=== PATIENT | male | born 1975 | race Caucasian/White ===

== ENCOUNTER 2020-10-20 14:16 | Emergency (ER) | payer BC ==
[2020-10-20] MEDS ORDERED: Sodium Chloride 0.9% 10 ML Syringe FLUSH PRN (14:54)
[2020-10-20] MEDS ORDERED: Ondansetron 4 MG/2 ML SDV IVPUSH ONE (14:54)
--- NOTE | 2020-10-20 14:57 | EDM.PDOC ---
ED HPI GENERAL MEDICAL PROBLEM - General Chief Complaint: Respiratory Problem Stated Complaint: WEAK/TIRED/CONFUSION Time Seen by Provider: 10/20/20 14:26 Source of Information: Reports: Patient History Limitations: Reports: No Limitations - History of Present Illness INITIAL COMMENTS - FREE TEXT/NARRATIVE: The patient presents with a few complaints. He has generalized weakness, nausea, vomiting, cough, congestion, and diarrhea. He also is fatigued and has a headache. He said he was tested about 1 month ago for COVID 19 and he was negative. He has no fever, numbness, abdominal pain. He has a history of anxiety and hypertension. He said this has been going on for a few days. He was confused to the time when he cam in but he knew who he was and where he was. Onset: Gradual Duration: Day(s): Severity: Moderate Improves with: Reports: None Worsens with: Reports: None Associated Symptoms: Reports: Confusion, Cough, Headaches, Nausea/Vomiting. Denies: Chest Pain, Fever/Chills, Shortness of Breath Headache Pain Score (Numeric/FACES): 5 - Related Data Allergies Allergy/AdvReac Type Severity Reaction Status Date / Time No Known Allergies Allergy Verified 10/20/20 14:37 Home Meds: Home Meds Hydrocodone/Acetaminophen [Hydrocodone-Acetamin 5-325 mg] 1 tab PO Q6H PRN 10/20/20 [History] LORazepam [Ativan] 0.5 mg PO DAILY 10/20/20 [History] Varenicline Tartrate [Chantix] 1 mg PO DAILY 10/20/20 [History] hydrOXYzine HCL [Hydroxyzine HCl] 25 mg PO Q6H PRN 10/20/20 [History] lisinopriL [Lisinopril] 40 mg PO DAILY 10/20/20 [History] Past Medical History Cardiovascular History: Reports: Hypertension Psychiatric History: Reports: Anxiety Social & Family History - Tobacco Use Tobacco Use Status *Q: Current Every Day Tobacco User Years of Tobacco use: 20 Packs/Tins Daily: 0.7 - Caffeine Use Caffeine Use: Reports: Coffee - Recreational Drug Use Recreational Drug Use: No ED ROS GENERAL - Review of Systems Review Of Systems: See Below Constitutional: Reports: Malaise, Weakness, Fatigue. Denies: Fever, Chills HEENT: Reports: No Symptoms Respiratory: Reports: Cough. Denies: Shortness of Breath Cardiovascular: Reports: No Symptoms Endocrine: Reports: Fatigue GI/Abdominal: Reports: Diarrhea, Nausea, Vomiting. Denies: Abdominal Pain : Reports: No Symptoms Musculoskeletal: Reports: No Symptoms ED EXAM, GENERAL - Physical Exam Exam: See Below Exam Limited By: No Limitations General Appearance: Alert, No Apparent Distress Ears: Normal External Exam Nose: Normal Inspection Head: Atraumatic, Normocephalic Neck: Normal Inspection Respiratory/Chest: No Respiratory Distress, Lungs Clear, Normal Breath Sounds Cardiovascular: Regular Rate, Rhythm, No Edema, No Murmur GI/Abdominal: Soft, Non-Tender, No Organomegaly, No Mass Back Exam: Normal Inspection Extremities: Normal Inspection Neurological: Alert, No Motor/Sensory Deficits, Confused (Does not know the time of day) #1 Interpretation EKG Date: 10/20/20 Time: 14:41 Rhythm: NSR Rate (Beats/Min): 79 Ovalo: Normal P-Wave: Present QRS: Normal ST-T: Normal QT: Prolonged Course - Vital Signs Last Recorded V/S: Last Vital Signs Temp 96.8 F L 10/20/20 14:31 Pulse 83 10/20/20 14:31 Resp 20 10/20/20 14:31 BP 162/112 H 10/20/20 14:31 Pulse Ox 98 10/20/20 14:31 - Orders/Labs/Meds Orders: Active Orders 24 hr Category Date Time Status EKG Documentation Completion [RC] ASDIRECTED Care 10/20/20 14:56 Active Peripheral IV Care [RC] . DIRECTED Care 10/20/20 14:55 Active Head wo Cont [CT] Stat Exams 10/20/20 16:09 Taken Potassium Chloride [KCl 10 MEQ in Water 100 ML] 10 meq Med 10/20/20 17:45 Active Premix Bag 1 bag IV Q1H Sodium Chloride 0.9% [Saline Flush] Med 10/20/20 14:54 Active 10 ml FLUSH ASDIRECTED PRN Sodium Chloride 3% 100 ml Med 10/20/20 18:00 Active IV ASDIRECTED ED Antiemetic Medication Reflex [OM.PC] Stat Oth 10/20/20 14:55 Ordered Peripheral IV Insertion Adult [OM.PC] Stat Oth 10/20/20 14:54 Ordered EKG 12 Lead [EK] Stat Ther 10/20/20 14:56 Ordered Medication Orders Potassium Chloride 10 meq/ (Premix) 100 mls @ 100 mls/hr IV Q1H MICH Stop: 10/20/20 21:44 Last Admin: 10/20/20 18:20 Dose: 100 mls/hr Documented by: PEYTON Sodium Chloride (Sodium Chloride 3%) 100 mls @ 100 mls/hr IV ASDIRECTED MICH Last Admin: 10/20/20 18:15 Dose: 100 mls/hr Documented by: PEYTON Sodium Chloride (Saline Flush) 10 ml FLUSH ASDIRECTED PRN PRN Reason: Keep Vein Open Last Admin: 10/20/20 15:42 Dose: 10 ml Documented by: PEYTON Labs: Laboratory Tests 10/20/20 10/20/20 10/20/20 Range/Units 14:32 15:42 15:48 WBC (4.23-9.07) K/mm3 RBC (4.63-6.08) M/mm3 Hgb (13.7-17.5) gm/dl Hct (40.1-51.0) % MCV (79.0-92.2) fl MCH (25.7-32.2) pg MCHC (32.2-35.5) g/dl RDW Std Deviation (35.1-43.9) fL Plt Count (163-337) K/mm3 MPV (9.4-12.3) fl Neut % (Auto) (34.0-67.9) % Lymph % (Auto) (21.8-53.1) % [place] % (Auto) (5.3-12.2) % Eos % (Auto) (0.8-7.0) Baso % (Auto) (0.1-1.2) % Neut # (Auto) (1.78-5.38) K/mm3 Lymph # (Auto) (1.32-3.57) K/mm3 [place] # (Auto) (0.30-0.82) K/mm3 Eos # (Auto) (0.04-0.54) K/mm3 Baso # (Auto) (0.01-0.08) K/mm3 Manual Slide Review Sodium (136-145) mEq/L Potassium (3.5-5.1) mEq/L Chloride (98-107) mEq/L Carbon Dioxide (21-32) mEq/L Anion Gap (5-15) BUN (7-18) mg/dL Creatinine (0.7-1.3) mg/dL Est Cr Clr Drug Dosing mL/min Estimated GFR (MDRD) (>60) mL/min BUN/Creatinine Ratio (14-18) Glucose (74-106) mg/dL Serum Osmolality (280-300) mosm/kg Calcium (8.5-10.1) mg/dL Magnesium (1.8-2.4) mg/dl Total Bilirubin (0.2-1.0) mg/dL AST (15-37) U/L ALT (16-63) U/L Alkaline Phosphatase (46-116) U/L Troponin I (0.00-0.056) ng/mL Total Protein (6.4-8.2) g/dl Albumin (3.4-5.0) g/dl Globulin gm/dL Albumin/Globulin Ratio (1-2) Lipase (73-393) U/L Urine Color Yellow (Yellow) Urine Appearance Clear (Clear) Urine pH 8.0 (5.0-8.0) Ur Specific [place] 1.020 (1.005-1.030) Urine Protein Negative (Negative) Urine Glucose (UA) 2+ H (Negative) Urine Ketones Trace H (Negative) Urine Occult Blood Negative (Negative) Urine Nitrite Negative (Negative) Urine Bilirubin Negative (Negative) Urine Urobilinogen 1.0 (0.2-1.0) Ur Leukocyte Esterase Negative (Negative) Urine RBC 0-5 (0-5) /hpf Urine WBC 0-5 (0-5) /hpf Ur Squamous Epith Cells 0-5 (0-5) /hpf Urine Bacteria Moderate H (FEW) /hpf Urine Mucus Not seen (FEW) /hpf Ur Random Sodium (40-220) mEq/L Ethyl Alcohol 0.00 (0.00) gm% Influenza Type A RNA Negative (NEGATIVE) Influenza Type B RNA Negative (NEGATIVE) SARS-CoV-2 RNA (NOAM) Negative (NEGATIVE) 10/20/20 10/20/20 10/20/20 Range/Units 16:00 16:00 16:00 WBC 8.30 (4.23-9.07) K/mm3 RBC 4.85 (4.63-6.08) M/mm3 Hgb 14.5 (13.7-17.5) gm/dl Hct 38.9 L (40.1-51.0) % MCV 80.2 (79.0-92.2) fl MCH 29.9 (25.7-32.2) pg MCHC 37.3 H (32.2-35.5) g/dl RDW Std Deviation 33.5 L (35.1-43.9) fL Plt Count 244 (163-337) K/mm3 MPV 8.5 L (9.4-12.3) fl Neut % (Auto) 83.8 H (34.0-67.9) % Lymph % (Auto) 7.5 L (21.8-53.1) % [place] % (Auto) 8.2 (5.3-12.2) % Eos % (Auto) 0.2 L (0.8-7.0) Baso % (Auto) 0.1 (0.1-1.2) % Neut # (Auto) 6.95 H (1.78-5.38) K/mm3 Lymph # (Auto) 0.62 L (1.32-3.57) K/mm3 [place] # (Auto) 0.68 (0.30-0.82) K/mm3 Eos # (Auto) 0.02 L (0.04-0.54) K/mm3 Baso # (Auto) 0.01 (0.01-0.08) K/mm3 Manual Slide Review Abnormal smear Sodium 97 L* (136-145) mEq/L Potassium 2.0 L* (3.5-5.1) mEq/L Chloride 60 L (98-107) mEq/L Carbon Dioxide 35 H (21-32) mEq/L Anion Gap 4.0 L (5-15) BUN 2 L (7-18) mg/dL Creatinine 0.6 L (0.7-1.3) mg/dL Est Cr Clr Drug Dosing 144.64 mL/min Estimated GFR (MDRD) > 60 (>60) mL/min BUN/Creatinine Ratio 3.3 L (14-18) Glucose 146 H (74-106) mg/dL Serum Osmolality 204 L (280-300) mosm/kg Calcium 8.3 L (8.5-10.1) mg/dL Magnesium (1.8-2.4) mg/dl Total Bilirubin 1.1 H (0.2-1.0) mg/dL AST 28 (15-37) U/L ALT 48 (16-63) U/L Alkaline Phosphatase 110 (46-116) U/L Troponin I < 0.017 (0.00-0.056) ng/mL Total Protein 6.5 (6.4-8.2) g/dl Albumin 3.0 L (3.4-5.0) g/dl Globulin 3.5 gm/dL Albumin/Globulin Ratio 0.9 L (1-2) Lipase 214 (73-393) U/L Urine Color (Yellow) Urine Appearance (Clear) Urine pH (5.0-8.0) Ur Specific [place] (1.005-1.030) Urine Protein (Negative) Urine Glucose (UA) (Negative) Urine Ketones (Negative) Urine Occult Blood (Negative) Urine Nitrite (Negative) Urine Bilirubin (Negative) Urine Urobilinogen (0.2-1.0) Ur Leukocyte Esterase (Negative) Urine RBC (0-5) /hpf Urine WBC (0-5) /hpf Ur Squamous Epith Cells (0-5) /hpf Urine Bacteria (FEW) /hpf Urine Mucus (FEW) /hpf Ur Random Sodium (40-220) mEq/L Ethyl Alcohol (0.00) gm% Influenza Type A RNA (NEGATIVE) Influenza Type B RNA (NEGATIVE) SARS-CoV-2 RNA (NOAM) (NEGATIVE) 10/20/20 10/20/20 Range/Units 16:00 16:04 WBC (4.23-9.07) K/mm3 RBC (4.63-6.08) M/mm3 Hgb (13.7-17.5) gm/dl Hct (40.1-51.0) % MCV (79.0-92.2) fl MCH (25.7-32.2) pg MCHC (32.2-35.5) g/dl RDW Std Deviation (35.1-43.9) fL Plt Count (163-337) K/mm3 MPV (9.4-12.3) fl Neut % (Auto) (34.0-67.9) % Lymph % (Auto) (21.8-53.1) % [place] % (Auto) (5.3-12.2) % Eos % (Auto) (0.8-7.0) Baso % (Auto) (0.1-1.2) % Neut # (Auto) (1.78-5.38) K/mm3 Lymph # (Auto) (1.32-3.57) K/mm3 [place] # (Auto) (0.30-0.82) K/mm3 Eos # (Auto) (0.04-0.54) K/mm3 Baso # (Auto) (0.01-0.08) K/mm3 Manual Slide Review Sodium (136-145) mEq/L Potassium (3.5-5.1) mEq/L Chloride (98-107) mEq/L Carbon Dioxide (21-32) mEq/L Anion Gap (5-15) BUN (7-18) mg/dL Creatinine (0.7-1.3) mg/dL Est Cr Clr Drug Dosing mL/min Estimated GFR (MDRD) (>60) mL/min BUN/Creatinine Ratio (14-18) Glucose (74-106) mg/dL Serum Osmolality (280-300) mosm/kg Calcium (8.5-10.1) mg/dL Magnesium 1.8 (1.8-2.4) mg/dl Total Bilirubin (0.2-1.0) mg/dL AST (15-37) U/L ALT (16-63) U/L Alkaline Phosphatase (46-116) U/L Troponin I (0.00-0.056) ng/mL Total Protein (6.4-8.2) g/dl Albumin (3.4-5.0) g/dl Globulin gm/dL Albumin/Globulin Ratio (1-2) Lipase (73-393) U/L Urine Color (Yellow) Urine Appearance (Clear) Urine pH (5.0-8.0) Ur Specific [place] (1.005-1.030) Urine Protein (Negative) Urine Glucose (UA) (Negative) Urine Ketones (Negative) Urine Occult Blood (Negative) Urine Nitrite (Negative) Urine Bilirubin (Negative) Urine Urobilinogen (0.2-1.0) Ur Leukocyte Esterase (Negative) Urine RBC (0-5) /hpf Urine WBC (0-5) /hpf Ur Squamous Epith Cells (0-5) /hpf Urine Bacteria (FEW) /hpf Urine Mucus (FEW) /hpf Ur Random Sodium 21 L (40-220) mEq/L Ethyl Alcohol (0.00) gm% Influenza Type A RNA (NEGATIVE) Influenza Type B RNA (NEGATIVE) SARS-CoV-2 RNA (NOAM) (NEGATIVE) Meds: Medications Generic Name Dose Route Start Last Admin Trade Name Freq PRN Reason Stop Dose Admin Potassium Chloride 10 meq/ 100 mls @ 100 mls/hr 10/20/20 17:45 10/20/20 18:20 Premix IV 10/20/20 21:44 100 mls/hr Q1H MICH Administration Sodium Chloride 100 mls @ 100 mls/hr 10/20/20 18:00 10/20/20 18:15 Sodium Chloride 3% IV 100 mls/hr ASDIRECTED MICH Administration Sodium Chloride 10 ml 10/20/20 14:54 10/20/20 15:42 Saline Flush FLUSH 10 ml ASDIRECTED PRN Administration Keep Vein Open Discontinued Medications Generic Name Dose Route Start Last Admin Trade Name Freq PRN Reason Stop Dose Admin Ondansetron HCl 4 mg 10/20/20 14:54 10/20/20 15:42 Zofran IVPUSH 10/20/20 14:55 4 mg ONETIME ONE Administration - Re-Assessments/Exams Free Text/Narrative Re-Assessment/Exam: 10/20/20 17:58 I ordered an IV NS 1L bolus, EKG, CT of his head, CXR, labs, UA and a COVID 19 test. His EKG shows a NSR with no acute changes. His CT of his head shows no acute intracranial abnormality. 10/20/20 18:01 His CXR shows possible 5mm nodule next to the left lung base close to the left heart border. Recommend follow up chest x-ray in 6 months to make sure this does not persist. Nothing acute is otherwise seen. His CBC looks good. His Na is low at 97. His CL is low at 60. His K is low at 2. His creatinine is low at 0.6. His glucose is 146. His serum osmolality is elevated slightly at 204. His troponin is negative. His lipase is negative. His randum urine is 21 which is low. He is COVID and influenza negative. I have ordered 40meq of KCL IV and I have also ordered hypertonic saline 100ml bolus. His came back into the room and she says he quit drinking alcohol about 2 weeks ago and he has been drinking more water and near beer. 10/20/20 18:05 He had a stuffy nose a few days ago and last night he had some dizziness and today that was much worse. I feel he needs to be admitted. We have no beds here and [facility]. I called [facility] in [place] and they will call me back. 10/20/20 18:30 I talked with the intensive care doctor Dr Hollis and he accepted the patient. He wanted us to give the 100ml bolus of hypertonic saline. Departure - Departure Time of Disposition: 18:35 Disposition: DC/[facility] to [facility] Condition: Serious Clinical Impression: Dizziness, Hyponatremia, Hypokalemia - Discharge Information Referrals: Guy Anguiano Jr, MD [Primary Care Provider] - Forms: ED Department Discharge Sepsis Event Note (ED) - Evaluation Sepsis Screening Result: No Definite Risk - Focused Exam Vital Signs: Vital Signs Temp Pulse Resp BP Pulse Ox 10/20/20 14:31 96.8 F L 83 20 162/112 H 98 - My Orders Last 24 Hours: My Active Orders 10/20/20 14:54 Sodium Chloride 0.9% [Saline Flush] 10 ml FLUSH ASDIRECTED PRN Peripheral IV Insertion Adult [OM.PC] Stat 10/20/20 14:55 Peripheral IV Care [RC] . DIRECTED ED Antiemetic Medication Reflex [OM.PC] Stat 10/20/20 14:56 EKG Documentation Completion [RC] ASDIRECTED EKG 12 Lead [EK] Stat 10/20/20 16:09 Head wo Cont [CT] Stat 10/20/20 17:45 Potassium Chloride [KCl 10 MEQ in Water 100 ML] 10 meq Premix Bag 1 bag IV Q1H 10/20/20 18:00 Sodium Chloride 3% 100 ml IV ASDIRECTED - Assessment/Plan Last 24 Hours: My Active Orders 10/20/20 14:54 Sodium Chloride 0.9% [Saline Flush] 10 ml FLUSH ASDIRECTED PRN Peripheral IV Insertion Adult [OM.PC] Stat 10/20/20 14:55 Peripheral IV Care [RC] . DIRECTED ED Antiemetic Medication Reflex [OM.PC] Stat 10/20/20 14:56 EKG Documentation Completion [RC] ASDIRECTED EKG 12 Lead [EK] Stat 10/20/20 16:09 Head wo Cont [CT] Stat 10/20/20 17:45 Potassium Chloride [KCl 10 MEQ in Water 100 ML] 10 meq Premix Bag 1 bag IV Q1H 10/20/20 18:00 Sodium Chloride 3% 100 ml IV ASDIRECTED
--- NOTE | 2020-10-20 16:20 | CR ---
Chest: Portable view of the chest was obtained. Comparison: No prior chest imaging is available. Findings: Heart size and mediastinum: Heart size and mediastinum are within normal limits. No discrete mediastinal mass is seen. Lungs: Possible small nodule next to the left heart border measuring approximately 5 mm. Lungs otherwise are clear. No acute parenchymal change is seen. Osseous: No discrete bony abnormalities are appreciated. Impression: 1. Possible 5 mm nodule next to the left lung base close to the left heart border. Recommend Follow-Up chest x-ray in 6 months to make sure this does not persist. 2. Nothing acute is otherwise seen. Diagnostic code #9
[2020-10-20 16:58] LABS: CORONAVIRUS COVID-19 NAA NEGATIVE (NEGATIVE)
[2020-10-20] MEDS ORDERED: Potassium Chloride 10 MEQ in Premix Bag 1 BAG IV SCH (17:45)
[2020-10-20] MEDS ORDERED: Sodium Chloride 3% 100 ML IV SCH (18:00)
--- NOTE | 2020-10-21 09:40 | CT ---
Head CT Technique: Multiple axial sections through the brain were obtained. Intravenous contrast was not utilized. Comparison: No prior intracranial imaging is available. Findings: Ventricles along with basal cisterns and sulci over the convexities are within normal limits for the patient's age. Small abnormal parenchymal density is seen within the left parietal periventricular white matter. This small area measures about 1.1 cm in size. No other abnormal parenchymal densities are seen. No evidence of intracranial hemorrhage is seen. No midline shift or mass-effect is seen. Bone window settings were reviewed which show no acute findings within the paranasal sinuses or mastoid sinuses. No acute calvarial abnormality is appreciated. Impression: 1. Small low density area within the left periventricular white matter within the parietal region. This is most likely incidental but MRI (without and with contrast) is recommended to make sure this does not represent a small tumor. 2. No additional abnormality is seen. Diagnostic code #9 Slightly disagree with preliminary report from [facility], finalized on 10/20/20, 5:56 PM [employer]
== END 2020-10-20 19:10 ==
LOC: JD.ED 14:16
DX: E87.6 Hypokalemia (principal); E87.1 Hypo-osmolality and hyponatremia; I10 Essential (primary) hypertension; F41.9 Anxiety disorder, unspecified; F17.210 Nicotine dependence, cigarettes, uncomplicated; Z79.899 Other long term (current) drug therapy; Z20.828 Contact with and (suspected) exposure to other viral communicable diseases
CPT/HCPCS: 0240U; 36415; 70450; 70450-26; 71045; 71045-26; 80053; 80307; 81001; 83690; 83735; 83930; 84300; 84484; 85025; 93005; 93010; 96365; 96375; 99284; 99285-25; J2405; J3480; J7040